=== PATIENT | male | born 1970 | race African-American/Black ===

== ENCOUNTER 2017-02-04 12:23 | Emergency (ER) | payer SELFPAY ==
[~2017-02-04 12:23] MED LIST: CIP5 PO; DSS PO; NO HOME MEDS; PCET PO
== END 2017-02-04 13:00 | disposition home or self-care (01) ==
LOC: ER 12:23
DX: L98.9 Disorder of the skin and subcutaneous tissue, unspecified (principal); Z79.899 Other long term (current) drug therapy
CPT/HCPCS: 99283